=== PATIENT | male | born 1945 | race Caucasian/White ===

== ENCOUNTER 2017-04-20 19:25 | Inpatient (IN) | payer OTHER ==
[~2017-04-20] VITALS: Ht 182.9 cm; Wt 88.1 kg
--- NOTE | 2017-04-20 19:28 | PHYS DOC ---
Adult General Chief Complaint Chief Complaint: DIZZY/LIGHT HEADED [facility] HPI Patient is a 72 year old, male who presents with lightheadedness/ dizziness. He states it started 34 days ago is made worse when he turns his head or looks up. He also complains of his heart racing and his blood pressure being elevated in the 180s. States generalizes haven't felt good for last 2-3 days. He denies any chest discomfort or shortness of breath or dyspnea on exertion. 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 He initially decided to go home but he feel worse or he came in the ER. He states he does have a history of coronary artery disease and bypass in 1994 and he's had several stents since then the last one approximately 3 years ago. Review of Systems Review of Systems Constitutional: Denies fever or chills [] Eyes: Denies change in visual acuity, redness, or eye pain [] HENT: Denies nasal congestion or sore throat [] Respiratory: Denies cough or shortness of breath [] Cardiovascular: No additional information not addressed in HPI [] GI: Denies abdominal pain, nausea, vomiting, bloody stools or diarrhea [] : Denies dysuria or hematuria [] Musculoskeletal: Denies back pain or joint pain [] Integument: Denies rash or skin lesions [] Neurologic: Denies headache, focal weakness or sensory changes [] Endocrine: Denies polyuria or polydipsia [] Allergies Allergies Allergies Coded Allergies Type Severity Reaction Last Updated Verified oxycodone Allergy Severe SOA 04/20/17 Yes Physical Exam Physical Exam Constitutional: Well developed, well nourished, no acute distress, non-toxic appearance. [] HENT: Normocephalic, atraumatic, bilateral external ears normal, oropharynx moist, no oral exudates, nose normal. [] Eyes: PERRLA, EOMI, conjunctiva normal, no discharge. [] Neck: Normal range of motion, no tenderness, supple, no stridor. [] Cardiovascular:Heart rate regular rhythm, no murmur [] Lungs & Thorax: Bilateral breath sounds clear to auscultation [] Abdomen: Bowel sounds normal, soft, no tenderness, no masses, no pulsatile masses. [] Skin: Warm, dry, no erythema, no rash. [] Back: No tenderness, no CVA tenderness. [] Extremities: No tenderness, no cyanosis, no clubbing, ROM intact, no edema. [] Neurologic: Alert and oriented X 3, normal motor function, normal sensory function, no focal deficits noted. [] Psychologic: Affect normal, judgement normal, mood normal. [] Current Patient Data Vital Signs Vital Signs Date Time Temp Pulse Resp B/P (MAP) Pulse Ox O2 Delivery O2 Flow Rate FiO2 04/20/17 19:43 98.3 86 20 170/82 (111) 97 Room Air 98.3 Lab Values Laboratory Tests Test 04/20/17 19:37 White Blood Count 10.1 x10^3/uL (4.0-11.0) Red Blood Count 4.50 x10^6/uL (4.30-5.70) Hemoglobin 13.0 g/dL (13.0-17.5) Hematocrit 40.2 % (39.0-53.0) Mean Corpuscular Volume 89 fL (79-100) Mean Corpuscular Hemoglobin 29 pg (25-35) Mean Corpuscular Hemoglobin Concent 32 g/dL (31-37) Red Cell Distribution Width 14.0 % (11.5-14.5) Platelet Count 280 x10^3/uL (140-400) Neutrophils (%) (Auto) 52 % (31-73) Lymphocytes (%) (Auto) 34 % (24-48) Monocytes (%) (Auto) 8 % (0-9) Eosinophils (%) (Auto) 4 % (0-3) H Basophils (%) (Auto) 1 % (0-3) Neutrophils # (Auto) 5.2 x10^3uL (1.8-7.7) Lymphocytes # (Auto) 3.4 x10^3/uL (1.0-4.8) Monocytes # (Auto) 0.8 x10^3/uL (0.0-1.1) Eosinophils # (Auto) 0.4 x10^3/uL (0.0-0.7) Basophils # (Auto) 0.1 x10^3/uL (0.0-0.2) Sodium Level 138 mmol/L (136-145) Potassium Level 4.5 mmol/L (3.5-5.1) Chloride Level 101 mmol/L (98-107) Carbon Dioxide Level 32 mmol/L (21-32) Anion Gap 5 (6-14) L Blood Urea Nitrogen 24 mg/dL (8-26) Creatinine 1.7 mg/dL (0.7-1.3) H Estimated GFR (Cockcroft-Gault) 40.0 Glucose Level 155 mg/dL (70-99) H Calcium Level 9.2 mg/dL (8.5-10.1) Magnesium Level 2.2 mg/dL (1.8-2.4) Total Bilirubin 0.3 mg/dL (0.2-1.0) Direct Bilirubin < 0.1 mg/dL (0.0-0.2) Aspartate Amino Transferase (AST) 17 U/L (15-37) Alanine Aminotransferase (ALT) 18 U/L (16-63) Alkaline Phosphatase 73 U/L (46-116) Creatine Kinase 126 U/L (39-308) Creatine Kinase MB (Mass) 0.9 ng/mL (0.0-3.6) Creatine Kinase MB Relative Index 0.7 % (0-4) Troponin I Quantitative < 0.017 ng/mL (0.000-0.055) WQ-Ftd-J-Type Natriuretic Peptide 184 pg/mL (0-124) H Total Protein 8.4 g/dL (6.4-8.2) H Albumin 3.6 g/dL (3.4-5.0) Thyroid Stimulating Hormone (TSH) 2.419 uIU/mL (0.358-3.74) Laboratory Tests 04/20/17 19:37 Laboratory Tests 04/20/17 19:37 EKG EKG EKG shows sinus rhythm [address] elevations or T-wave inversions, normal axis, QTC 441 ms, occasional PAC noted, as interpreted by me. Radiology/Procedures Radiology/Procedures One view chest x-ray didn't show any focal consolidations, bony abnormalities, pneumothorax, as interpreted by me. Impressions: Coronary artery disease Dizziness Palpitations Diabetes Course & Med Decision Making Course & Med Decision Making Pertinent Labs and Imaging studies reviewed. (See chart for details) Labs do not show any acute abnormality's. EKG also nonacute. Monitor does have some PACs occasionally. CT of his head is pending at this time and will admit to medicine to continue watching his monitor for any arrhythmias and repeat troponins overnight. I did order a carotid Doppler's to be done. Patient's agreeable to the plan, patient being admitted by Dr. Wale Hobbs Disclaimer Anjel Disclaimer This electronic medical record was generated, in whole or in part, using a voice recognition dictation system. Departure Departure Impression: Primary Impression: Dizziness Disposition: ADMITTED INPATIENT Admitting Physician: Saskia Doan Condition: STABLE TOMI ROGERS MD Apr 20, 2017 19:28
[2017-04-20 19:47] LABS: BASO # 0.1 x10^3/uL (0.0-0.2); BASO % 1 % (0-3); EOS % 4 % (0-3); HEMATOCRIT 40.2 % (39.0-53.0); LYMPH # 3.4 x10^3/uL (1.0-4.8); LYMPH % 34 % (24-48); MEAN CORPUSCULAR HEMOGLOBIN 29 pg (25-35); MEAN CORPUSCULAR HGB CONC 32 g/dL (31-37); MEAN CORPUSCULAR VOLUME 89 fL (79-100); MONO % 8 % (0-9); NEUT % 52 % (31-73); PLATELET COUNT 280 x10^3/uL (140-400); WHITE BLOOD COUNT 10.1 x10^3/uL (4.0-11.0)
[2017-04-20 20:01] LABS: ANION GAP 5 (6-14); BLOOD UREA NITROGEN 24 mg/dL (8-26); CALCIUM 9.2 mg/dL (8.5-10.1); CARBON DIOXIDE 32 mmol/L (21-32); CHLORIDE 101 mmol/L (98-107); CREATININE 1.7 mg/dL (0.7-1.3); GLUCOSE 155 mg/dL (70-99); POTASSIUM 4.5 mmol/L (3.5-5.1); SODIUM 138 mmol/L (136-145)
[2017-04-20 20:06] LABS: ALBUMIN 3.6 g/dL (3.4-5.0); ALK PHOS 73 U/L (46-116); ALT (SGPT) 18 U/L (16-63); AST (SGOT) 17 U/L (15-37); DIRECT BILIRUBIN < 0.1 mg/dL (0.0-0.2); MAGNESIUM 2.2 mg/dL (1.8-2.4); TOTAL BILIRUBIN 0.3 mg/dL (0.2-1.0); TOTAL PROTEIN 8.4 g/dL (6.4-8.2)
[2017-04-20 20:13] LABS: CKMB MASS 0.9 ng/mL (0.0-3.6)
[2017-04-20] MEDS ORDERED: ONDANSETRON PF 4 MG/2 ML VIAL. IV PRN (21:15)
[2017-04-20 21:44] LABS: BARBITURATES NEG (NEG); BENZODIAZEPINES NEG (NEG); CANNABINOIDS NEG (NEG); COCAINE NEG (NEG); METHADONE NEG (NEG); OPIATES NEG (NEG); PHENCYCLIDINE NEG (NEG)
[2017-04-20 22:03] LABS: BILIRUBIN,URINE NEGATIVE (NEG); GLUCOSE,URINE NEGATIVE (NEG); NITRITE,URINE POSITIVE (NEG); PH,URINE 6.5; PROTEIN,URINE NEGATIVE (NEG-TRACE); UROBILINOGEN,URINE 0.2 mg/dL (0.2 mg/dL)
--- NOTE | 2017-04-20 22:12 | RAD ---
Clinical Indication: Dizziness for several days. Worse with turning of head. Technique: Study is dated April 20, 2017. CT images of the head were obtained from the skull base to the vertex without IV contrast. Comparison is from December 17, 2008. One or more of the following individualized dose reduction techniques were utilized for this examination: 1. Automated exposure control 2. Adjustment of the mA and/or kV according to patient size 3. Use of iterative reconstruction technique Findings: There is diffuse, symmetric prominence of the ventricles and subarachnoid spaces consistent with age-related parenchymal volume loss. There are areas of scattered decreased attenuation in the supratentorial white matter. While nonspecific, findings are likely secondary to small vessel ischemic disease. There is no hemorrhage, extraaxial fluid collection, mass, or midline shift. There is no large vascular distribution infarct. The posterior fossa and brainstem are unremarkable. Orbits are normal. Tiny air-fluid level is noted in the right maxillary sinus. There is no skull fracture appreciated on bone level images. Impression: No acute intracranial findings. Brain parenchymal volume loss and minimal probable small vessel ischemic disease. Electronically signed by: Donald Henderson MD (04/20/2017 10:09 PM) [facility]
[2017-04-20 22:16] LABS: BACTERIA,URINE MANY /HPF (0-FEW); WBC,URINE >40 /HPF (0-4)
--- NOTE | 2017-04-20 22:33 | RAD ---
Indication: Dizziness for 2 weeks. Hypertension Technique: Study is dated April 20, 2017. Grayscale, color-flow, and spectral waveform analysis was performed. Comparison is from December 19, 2008. Findings: Right Carotid: The 2 D images demonstrate mild to moderate plaquing but no evidence of significant narrowing. The color images are normal without turbulence or jet effect. The CCA Peak systolic velocity is 162 cm/sec, ICA peak systolic velocity is 135 cm/sec, and ICA end-diastolic velocity is 43 cm/sec. The ICA/CCA ratio is 0.8. Left Carotid: The 2 D images demonstrate mild plaquing with no evidence of significant narrowing. The color images are normal without turbulence or jet effect. The CCA Peak systolic velocity is 103 cm/sec, ICA peak systolic velocity is 124 cm/sec, and ICA end-diastolic velocity is 29 cm/sec. The ICA/CCA ratio is 1.2. Vertebral Arteries: Antegrade flow is noted within both vertebral arteries. All measurements follow NASCET methodology. Impression: Plaquing in the carotid bulbs, no evidence of a hemodynamically significant stenosis. Electronically signed by: Donald Henderson MD (04/20/2017 10:28 PM) [facility]
[2017-04-20 23:00] VITALS: BP 132/101
[2017-04-20] MEDS ORDERED: METO1TAB32 PO (23:18)
[2017-04-20] MEDS ORDERED: LISI-334 PO (23:18)
[2017-04-20] MEDS ORDERED: METF500T4 PO (23:18)
[2017-04-21 00:07] VITALS: BP 132/101
[2017-04-21] MEDS ORDERED: cloNIDine HCL 0.1 MG TABLET PO PRN (01:00)
[2017-04-21 03:00] VITALS: BP 146/52
[2017-04-21 05:00] LABS: BASO # 0.1 x10^3/uL (0.0-0.2); BASO % 1 % (0-3); EOS % 5 % (0-3); HEMATOCRIT 38.5 % (39.0-53.0); HEMOGLOBIN 12.4 g/dL (13.0-17.5); LYMPH # 3.2 x10^3/uL (1.0-4.8); LYMPH % 34 % (24-48); MEAN CORPUSCULAR HEMOGLOBIN 29 pg (25-35); MEAN CORPUSCULAR HGB CONC 32 g/dL (31-37); MEAN CORPUSCULAR VOLUME 89 fL (79-100); MONO % 10 % (0-9); NEUT % 50 % (31-73); PLATELET COUNT 246 x10^3/uL (140-400); RED BLOOD COUNT 4.33 x10^6/uL (4.30-5.70); RED CELL DISTRIBUTION WIDTH 13.9 % (11.5-14.5); WHITE BLOOD COUNT 9.4 x10^3/uL (4.0-11.0)
[2017-04-21 05:19] LABS: CALCIUM 8.9 mg/dL (8.5-10.1); CREATININE 1.6 mg/dL (0.7-1.3); GFR 42.9; POTASSIUM 4.7 mmol/L (3.5-5.1)
[2017-04-21 07:00] VITALS: BP 108/60
[2017-04-21] MEDS ORDERED: metFORMIN 500 MG TABLET PO SCH (08:00)
--- NOTE | 2017-04-21 08:47 | RAD ---
AP chest. History: Dizzy, elevated heart rate AP view was taken of the chest. Lungs are clear. There are changes from bypass surgery. Heart is normal in size. There is no effusion. Impression: 1. No acute chest disease.
[2017-04-21] MEDS: hydroCHLOROthiazide 12.5 MG CAPSULE PO SCH ×2 (09:00→12:16)
[2017-04-21 11:00] VITALS: BP 129/66
[2017-04-21] MEDS: METOPROLOL SUCC 24HR ER 50 MG TAB.ER.24H. PO SCH (12:16)
[2017-04-21] MEDS: LISINOPRIL 20 MG TABLET PO SCH ×2 (12:17→19:53)
--- NOTE | 2017-04-21 12:30 | PDOC ---
PROGRESS NOTES Chief Complaint Chief Complaint Lightheadedness/dizziness History of Present Illness History of Present Illness Pt is a 72 y/o male who presents with complaints of lightheadedness and dizziness which are made worse by turning his head from side to side or up or down. He has a hx of CAD with a CABG in 1994, and 3 stents since this, the most recent being 3 years ago. His initial cardiac workup was negative with a negative EKG, CXR and enzymes. CT head showed no acute findings. Carotid doppler showed plaques in the carotid bulbs but without any significant stenosis. Today it is noted that the patient has a positive urinalysis which we will treat with IV abx. Seen at bedside. He is resting comfortably and in no acute distress. Denies CP and SOB. No dizziness at the moment. No acute complaints at this time. Vitals Vitals Vital Signs Date Time Temp Pulse Resp B/P (MAP) Pulse Ox O2 Delivery O2 Flow Rate FiO2 04/21/17 12:17 64 129/66 04/21/17 11:00 97.3 16 96 Room Air 97.3 Physical Exam General: Alert, Oriented X3, Cooperative, No acute distress Heart: Regular rate, Normal S1, Normal S2, No murmurs Lungs: Clear Abdomen: Normal bowel sounds, Soft, No tenderness, No masses Extremities: No clubbing, No cyanosis, No edema, Normal pulses Skin: No rashes, No breakdown Labs LABS Laboratory Tests Test 04/20/17 19:37 04/20/17 21:15 04/21/17 03:15 04/21/17 07:45 White Blood Count 10.1 x10^3/uL (4.0-11.0) 9.4 x10^3/uL (4.0-11.0) Red Blood Count 4.50 x10^6/uL (4.30-5.70) 4.33 x10^6/uL (4.30-5.70) Hemoglobin 13.0 g/dL (13.0-17.5) 12.4 g/dL (13.0-17.5) Hematocrit 40.2 % (39.0-53.0) 38.5 % (39.0-53.0) Mean Corpuscular Volume 89 fL (79-100) 89 fL (79-100) Mean Corpuscular Hemoglobin 29 pg (25-35) 29 pg (25-35) Mean Corpuscular Hemoglobin Concent 32 g/dL (31-37) 32 g/dL (31-37) Red Cell Distribution Width 14.0 % (11.5-14.5) 13.9 % (11.5-14.5) Platelet Count 280 x10^3/uL (140-400) 246 x10^3/uL (140-400) Neutrophils (%) (Auto) 52 % (31-73) 50 % (31-73) Lymphocytes (%) (Auto) 34 % (24-48) 34 % (24-48) Monocytes (%) (Auto) 8 % (0-9) 10 % (0-9) Eosinophils (%) (Auto) 4 % (0-3) 5 % (0-3) Basophils (%) (Auto) 1 % (0-3) 1 % (0-3) Neutrophils # (Auto) 5.2 x10^3uL (1.8-7.7) 4.7 x10^3uL (1.8-7.7) Lymphocytes # (Auto) 3.4 x10^3/uL (1.0-4.8) 3.2 x10^3/uL (1.0-4.8) Monocytes # (Auto) 0.8 x10^3/uL (0.0-1.1) 1.0 x10^3/uL (0.0-1.1) Eosinophils # (Auto) 0.4 x10^3/uL (0.0-0.7) 0.5 x10^3/uL (0.0-0.7) Basophils # (Auto) 0.1 x10^3/uL (0.0-0.2) 0.1 x10^3/uL (0.0-0.2) Sodium Level 138 mmol/L (136-145) 139 mmol/L (136-145) Potassium Level 4.5 mmol/L (3.5-5.1) 4.7 mmol/L (3.5-5.1) Chloride Level 101 mmol/L (98-107) 104 mmol/L (98-107) Carbon Dioxide Level 32 mmol/L (21-32) 29 mmol/L (21-32) Anion Gap 5 (6-14) 6 (6-14) Blood Urea Nitrogen 24 mg/dL (8-26) 25 mg/dL (8-26) Creatinine 1.7 mg/dL (0.7-1.3) 1.6 mg/dL (0.7-1.3) Estimated GFR (Cockcroft-Gault) 40.0 42.9 Glucose Level 155 mg/dL (70-99) 88 mg/dL (70-99) Calcium Level 9.2 mg/dL (8.5-10.1) 8.9 mg/dL (8.5-10.1) Magnesium Level 2.2 mg/dL (1.8-2.4) Total Bilirubin 0.3 mg/dL (0.2-1.0) Direct Bilirubin < 0.1 mg/dL (0.0-0.2) Aspartate Amino Transf (AST/SGOT) 17 U/L (15-37) Alanine Aminotransferase (ALT/SGPT) 18 U/L (16-63) Alkaline Phosphatase 73 U/L (46-116) Creatine Kinase 126 U/L (39-308) Creatine Kinase MB (Mass) 0.9 ng/mL (0.0-3.6) Creatine Kinase MB Relative Index 0.7 % (0-4) Troponin I Quantitative < 0.017 ng/mL (0.000-0.055) < 0.017 ng/mL (0.000-0.055) QJ-Nsq-H-Type Natriuretic Peptide 184 pg/mL (0-124) Total Protein 8.4 g/dL (6.4-8.2) Albumin 3.6 g/dL (3.4-5.0) Thyroid Stimulating Hormone (TSH) 2.419 uIU/mL (0.358-3.74) Urine Collection Type Unknown Urine Color Yellow Urine Clarity Cloudy Urine pH 6.5 Urine Specific Edison 1.010 Urine Protein Negative mg/dL (NEG-TRACE) Urine Glucose (UA) Negative mg/dL (NEG) Urine Ketones (Stick) Negative mg/dL (NEG) Urine Blood Small (NEG) Urine Nitrite Positive (NEG) Urine Bilirubin Negative (NEG) Urine Urobilinogen Dipstick 0.2 mg/dL (0.2 mg/dL) Urine Leukocyte Esterase Large (NEG) Urine RBC 3-5 /HPF (0-2) Urine WBC >40 /HPF (0-4) Urine Bacteria Many /HPF (0-FEW) Urine Opiates Screen Neg (NEG) Urine Methadone Screen Neg (NEG) Urine Barbiturates Neg (NEG) Urine Phencyclidine Screen Neg (NEG) Urine Amphetamine/Methamphetamine Neg (NEG) Urine Benzodiazepines Screen Neg (NEG) Urine Cocaine Screen Neg (NEG) Urine Cannabinoids Screen Neg (NEG) Urine Ethyl Alcohol Neg (NEG) Glucose (Fingerstick) 112 mg/dL (70-99) Test 04/21/17 09:00 04/21/17 10:55 Troponin I Quantitative < 0.017 ng/mL (0.000-0.055) Glucose (Fingerstick) 119 mg/dL (70-99) Review of Systems Review of Systems General: + fatigue, no fever or chills CV: denies CP and palpitations resp: No SOB wheezing Neuo: No dizziness Assessment and Plan Assessmemt and Plan Problems Medical Problems: (1) Dizziness Status: Acute Assessment: -lightheadedness/dizziness -CAD Plan: -Continue monitoring -Recheck labs -Continue home meds - Order NS at 50 per hour - Order Levoquin -PT/OT -Consult neuro (Yenifer) -Consult Cardio (Bianka) -Consult GI (bubba) Problems: Comment Review of Relevant I have reviewed the following items jacky (where applicable) has been applied. Labs Laboratory Tests Test 04/20/17 19:37 04/20/17 21:15 04/21/17 03:15 04/21/17 07:45 White Blood Count 10.1 x10^3/uL (4.0-11.0) 9.4 x10^3/uL (4.0-11.0) Red Blood Count 4.50 x10^6/uL (4.30-5.70) 4.33 x10^6/uL (4.30-5.70) Hemoglobin 13.0 g/dL (13.0-17.5) 12.4 g/dL (13.0-17.5) Hematocrit 40.2 % (39.0-53.0) 38.5 % (39.0-53.0) Mean Corpuscular Volume 89 fL (79-100) 89 fL (79-100) Mean Corpuscular Hemoglobin 29 pg (25-35) 29 pg (25-35) Mean Corpuscular Hemoglobin Concent 32 g/dL (31-37) 32 g/dL (31-37) Red Cell Distribution Width 14.0 % (11.5-14.5) 13.9 % (11.5-14.5) Platelet Count 280 x10^3/uL (140-400) 246 x10^3/uL (140-400) Neutrophils (%) (Auto) 52 % (31-73) 50 % (31-73) Lymphocytes (%) (Auto) 34 % (24-48) 34 % (24-48) Monocytes (%) (Auto) 8 % (0-9) 10 % (0-9) Eosinophils (%) (Auto) 4 % (0-3) 5 % (0-3) Basophils (%) (Auto) 1 % (0-3) 1 % (0-3) Neutrophils # (Auto) 5.2 x10^3uL (1.8-7.7) 4.7 x10^3uL (1.8-7.7) Lymphocytes # (Auto) 3.4 x10^3/uL (1.0-4.8) 3.2 x10^3/uL (1.0-4.8) Monocytes # (Auto) 0.8 x10^3/uL (0.0-1.1) 1.0 x10^3/uL (0.0-1.1) Eosinophils # (Auto) 0.4 x10^3/uL (0.0-0.7) 0.5 x10^3/uL (0.0-0.7) Basophils # (Auto) 0.1 x10^3/uL (0.0-0.2) 0.1 x10^3/uL (0.0-0.2) Sodium Level 138 mmol/L (136-145) 139 mmol/L (136-145) Potassium Level 4.5 mmol/L (3.5-5.1) 4.7 mmol/L (3.5-5.1) Chloride Level 101 mmol/L (98-107) 104 mmol/L (98-107) Carbon Dioxide Level 32 mmol/L (21-32) 29 mmol/L (21-32) Anion Gap 5 (6-14) 6 (6-14) Blood Urea Nitrogen 24 mg/dL (8-26) 25 mg/dL (8-26) Creatinine 1.7 mg/dL (0.7-1.3) 1.6 mg/dL (0.7-1.3) Estimated GFR (Cockcroft-Gault) 40.0 42.9 Glucose Level 155 mg/dL (70-99) 88 mg/dL (70-99) Calcium Level 9.2 mg/dL (8.5-10.1) 8.9 mg/dL (8.5-10.1) Magnesium Level 2.2 mg/dL (1.8-2.4) Total Bilirubin 0.3 mg/dL (0.2-1.0) Direct Bilirubin < 0.1 mg/dL (0.0-0.2) Aspartate Amino Transf (AST/SGOT) 17 U/L (15-37) Alanine Aminotransferase (ALT/SGPT) 18 U/L (16-63) Alkaline Phosphatase 73 U/L (46-116) Creatine Kinase 126 U/L (39-308) Creatine Kinase MB (Mass) 0.9 ng/mL (0.0-3.6) Creatine Kinase MB Relative Index 0.7 % (0-4) Troponin I Quantitative < 0.017 ng/mL (0.000-0.055) < 0.017 ng/mL (0.000-0.055) AX-Jmc-C-Type Natriuretic Peptide 184 pg/mL (0-124) Total Protein 8.4 g/dL (6.4-8.2) Albumin 3.6 g/dL (3.4-5.0) Thyroid Stimulating Hormone (TSH) 2.419 uIU/mL (0.358-3.74) Urine Collection Type Unknown Urine Color Yellow Urine Clarity Cloudy Urine pH 6.5 Urine Specific Edison 1.010 Urine Protein Negative mg/dL (NEG-TRACE) Urine Glucose (UA) Negative mg/dL (NEG) Urine Ketones (Stick) Negative mg/dL (NEG) Urine Blood Small (NEG) Urine Nitrite Positive (NEG) Urine Bilirubin Negative (NEG) Urine Urobilinogen Dipstick 0.2 mg/dL (0.2 mg/dL) Urine Leukocyte Esterase Large (NEG) Urine RBC 3-5 /HPF (0-2) Urine WBC >40 /HPF (0-4) Urine Bacteria Many /HPF (0-FEW) Urine Opiates Screen Neg (NEG) Urine Methadone Screen Neg (NEG) Urine Barbiturates Neg (NEG) Urine Phencyclidine Screen Neg (NEG) Urine Amphetamine/Methamphetamine Neg (NEG) Urine Benzodiazepines Screen Neg (NEG) Urine Cocaine Screen Neg (NEG) Urine Cannabinoids Screen Neg (NEG) Urine Ethyl Alcohol Neg (NEG) Glucose (Fingerstick) 112 mg/dL (70-99) Test 04/21/17 09:00 04/21/17 10:55 Troponin I Quantitative < 0.017 ng/mL (0.000-0.055) Glucose (Fingerstick) 119 mg/dL (70-99) Laboratory Tests Test 04/20/17 19:37 04/20/17 21:15 04/21/17 03:15 04/21/17 07:45 White Blood Count 10.1 x10^3/uL (4.0-11.0) 9.4 x10^3/uL (4.0-11.0) Red Blood Count 4.50 x10^6/uL (4.30-5.70) 4.33 x10^6/uL (4.30-5.70) Hemoglobin 13.0 g/dL (13.0-17.5) 12.4 g/dL (13.0-17.5) Hematocrit 40.2 % (39.0-53.0) 38.5 % (39.0-53.0) Mean Corpuscular Volume 89 fL (79-100) 89 fL (79-100) Mean Corpuscular Hemoglobin 29 pg (25-35) 29 pg (25-35) Mean Corpuscular Hemoglobin Concent 32 g/dL (31-37) 32 g/dL (31-37) Red Cell Distribution Width 14.0 % (11.5-14.5) 13.9 % (11.5-14.5) Platelet Count 280 x10^3/uL (140-400) 246 x10^3/uL (140-400) Neutrophils (%) (Auto) 52 % (31-73) 50 % (31-73) Lymphocytes (%) (Auto) 34 % (24-48) 34 % (24-48) Monocytes (%) (Auto) 8 % (0-9) 10 % (0-9) Eosinophils (%) (Auto) 4 % (0-3) 5 % (0-3) Basophils (%) (Auto) 1 % (0-3) 1 % (0-3) Neutrophils # (Auto) 5.2 x10^3uL (1.8-7.7) 4.7 x10^3uL (1.8-7.7) Lymphocytes # (Auto) 3.4 x10^3/uL (1.0-4.8) 3.2 x10^3/uL (1.0-4.8) Monocytes # (Auto) 0.8 x10^3/uL (0.0-1.1) 1.0 x10^3/uL (0.0-1.1) Eosinophils # (Auto) 0.4 x10^3/uL (0.0-0.7) 0.5 x10^3/uL (0.0-0.7) Basophils # (Auto) 0.1 x10^3/uL (0.0-0.2) 0.1 x10^3/uL (0.0-0.2) Sodium Level 138 mmol/L (136-145) 139 mmol/L (136-145) Potassium Level 4.5 mmol/L (3.5-5.1) 4.7 mmol/L (3.5-5.1) Chloride Level 101 mmol/L (98-107) 104 mmol/L (98-107) Carbon Dioxide Level 32 mmol/L (21-32) 29 mmol/L (21-32) Anion Gap 5 (6-14) 6 (6-14) Blood Urea Nitrogen 24 mg/dL (8-26) 25 mg/dL (8-26) Creatinine 1.7 mg/dL (0.7-1.3) 1.6 mg/dL (0.7-1.3) Estimated GFR (Cockcroft-Gault) 40.0 42.9 Glucose Level 155 mg/dL (70-99) 88 mg/dL (70-99) Calcium Level 9.2 mg/dL (8.5-10.1) 8.9 mg/dL (8.5-10.1) Magnesium Level 2.2 mg/dL (1.8-2.4) Total Bilirubin 0.3 mg/dL (0.2-1.0) Direct Bilirubin < 0.1 mg/dL (0.0-0.2) Aspartate Amino Transf (AST/SGOT) 17 U/L (15-37) Alanine Aminotransferase (ALT/SGPT) 18 U/L (16-63) Alkaline Phosphatase 73 U/L (46-116) Creatine Kinase 126 U/L (39-308) Creatine Kinase MB (Mass) 0.9 ng/mL (0.0-3.6) Creatine Kinase MB Relative Index 0.7 % (0-4) Troponin I Quantitative < 0.017 ng/mL (0.000-0.055) < 0.017 ng/mL (0.000-0.055) JS-Alp-G-Type Natriuretic Peptide 184 pg/mL (0-124) Total Protein 8.4 g/dL (6.4-8.2) Albumin 3.6 g/dL (3.4-5.0) Thyroid Stimulating Hormone (TSH) 2.419 uIU/mL (0.358-3.74) Urine Collection Type Unknown Urine Color Yellow Urine Clarity Cloudy Urine pH 6.5 Urine Specific Edison 1.010 Urine Protein Negative mg/dL (NEG-TRACE) Urine Glucose (UA) Negative mg/dL (NEG) Urine Ketones (Stick) Negative mg/dL (NEG) Urine Blood Small (NEG) Urine Nitrite Positive (NEG) Urine Bilirubin Negative (NEG) Urine Urobilinogen Dipstick 0.2 mg/dL (0.2 mg/dL) Urine Leukocyte Esterase Large (NEG) Urine RBC 3-5 /HPF (0-2) Urine WBC >40 /HPF (0-4) Urine Bacteria Many /HPF (0-FEW) Urine Opiates Screen Neg (NEG) Urine Methadone Screen Neg (NEG) Urine Barbiturates Neg (NEG) Urine Phencyclidine Screen Neg (NEG) Urine Amphetamine/Methamphetamine Neg (NEG) Urine Benzodiazepines Screen Neg (NEG) Urine Cocaine Screen Neg (NEG) Urine Cannabinoids Screen Neg (NEG) Urine Ethyl Alcohol Neg (NEG) Glucose (Fingerstick) 112 mg/dL (70-99) Test 04/21/17 09:00 04/21/17 10:55 Troponin I Quantitative < 0.017 ng/mL (0.000-0.055) Glucose (Fingerstick) 119 mg/dL (70-99) Medications Current Medications Ondansetron HCl (Zofran) 4 mg PRN Q8HRS PRN IV NAUSEA/VOMITING; Start 04/20/17 at 21:15; Stop 04/21/17 at 21:14 Lisinopril (Prinivil) 20 mg DAILY PO Last administered on 04/21/17 12:17; Start 04/21/17 at 09:00 Metformin HCl (Glucophage) 500 mg BIDWMEALS PO ; Start 04/21/17 at 08:00; Status UNV Metoprolol Succinate (Toprol Xl) 50 mg DAILY PO Last administered on 04/21/17 12:16; Start 04/21/17 at 09:00 Clonidine HCl (Catapres) 0.1 mg PRN Q1HR PRN PO HYPERTENSION, SEE COMMENTS; Start 04/21/17 at 01:00 Hydrochlorothiazide (Microzide) 12.5 mg DAILY PO Last administered on 12:16; Start 04/21/17 at 09:00 Active Scripts Active Reported Metformin Hcl 500 Mg Tablet 500 Mg PO BIDWMEALS Lisinopril 20 Mg Tablet 20 Mg PO DAILY Metoprolol ER-Hctz 50-12.5 mg (Metoprolol Succinate/Hctz) 1 Each Tab.er.24h 1 Each PO DAILY Vitals/I & O Vital Sign - Last 24 Hours 04/20/17 04/20/17 04/20/17 04/20/17 19:43 21:49 23:00 23:36 Temp 98.3 98.3 98.3 98.3 Pulse 86 73 78 Resp 20 16 21 B/P (MAP) 170/82 (111) 130/55 (80) 132/101 (111) Pulse Ox 97 92 93 O2 Delivery Room Air Room Air Room Air Room Air 04/21/17 04/21/17 04/21/17 04/21/17 00:07 03:00 07:00 08:00 Temp 98.3 97.8 98.1 98.3 97.8 98.1 Pulse 78 59 64 Resp 21 20 16 B/P (MAP) 132/101 (111) 146/52 (83) 108/60 (76) Pulse Ox 93 92 94 O2 Delivery Room Air Room Air Room Air 04/21/17 04/21/17 04/21/17 11:00 12:16 12:17 Temp 97.3 97.3 Pulse 64 64 64 Resp 16 B/P (MAP) 129/66 (87) 129/66 129/66 Pulse Ox 96 O2 Delivery Room Air ALEXIS ROMO III DO Apr 21, 2017 12:30
--- NOTE | 2017-04-21 12:49 | EKG ---
[facility] [address] [place] [address] Test Date: 2017-04-20 Test Time: 19:35:17 Pat Name: VINITA THOMPSON Department: Room: [facility] Gender: M Voip Engineer: : [id number] Requested By: TOMI ROGERS Order Number: [id number] Reading MD: Andrew James Measurements Intervals [place] Rate: 79 P: 31 MS: 156 QRS: 43 QRSD: 82 T: 64 QT: 384 QTc: 441 Interpretive Statements SINUS RHYTHM PAC'S Electronically Signed On 04-22-2017 10:46:54 CDT by Andrew James
[2017-04-21] MEDS: IV NORMAL SALINE 1000ML BAG 1,000 ML IV SCH (14:22)
--- NOTE | 2017-04-21 14:51 | HP ---
ADMIT DATE: 04/21/2017 CHIEF COMPLAINT: Lightheadedness. HISTORY OF PRESENT ILLNESS: The patient is a pleasant 72-year-old male who appears much than his stated age. He is basically dizzy and lightheadedness. He has some palpitations. This has been occurring for up to 34 days. He feels his heart racing periodically. He does have a known history of bypass surgery and stents. I have discussed the case with ER physician. We are going to admit the patient and consult Cardiology. PAST MEDICAL HISTORY: Bypass surgery, cardiac stents. ALLERGIES: OXYCODONE. FAMILY HISTORY: Coronary artery disease. SOCIAL HISTORY: Does not drink, smoke or take drugs. MEDICATIONS: Reviewed. REVIEW OF SYSTEMS: REVIEW OF SYSTEMS: GENERAL: No history of weight change, weakness or fevers. SKIN: No bruising, hair changes or rashes. EYES: No blurred, double or loss of vision. NOSE AND THROAT: No history of nosebleeds, hoarseness or sore throat. HEART: He complains of intermittent palpitations. No history of chest pain or shortness of breath on exertion. LUNGS: Denies cough, hemoptysis, wheezing or shortness of breath. GASTROINTESTINAL: Denies changes in appetite, nausea, vomiting, diarrhea or constipation. GENITOURINARY: No history of frequency, urgency, hesitancy or nocturia. NEUROLOGIC: Denies history of numbness, tingling, tremor or weakness. PSYCHIATRIC: No history of panic, anxiety or depression. ENDOCRINE: No history of heat or cold intolerance, polyuria or polydipsia. EXTREMITIES: Denies muscle weakness, joint pain, pain on walking or stiffness. PHYSICAL EXAMINATION: VITAL SIGNS: Temperature afebrile, pulse 92, respirations 16, blood pressure 144/91, O2 sat 96%. GENERAL: He is alert, cooperative, very talkative, pleasant. HEART: Normal S1, S2. LUNGS: Clear. ABDOMEN: Soft. EXTREMITIES: No edema. SKIN: No rashes. PSYCHIATRIC: Stable. VASCULAR: Good capillary refill. ENDOCRINE: No thyromegaly. LYMPHATICS: No cervical nodes. HEMATOPOIETIC: No bruising. LABORATORY DATA: Hematology normal. Electrolytes normal. Troponin is 0. ASSESSMENT AND PLAN: Palpitations and lightheadedness with known coronary artery disease. The patient is being admitted. We will check serial enzymes, serial EKGs, cardiac monitoring. Consult Cardiology. Continue home medicines. ALEXIS ROMO DO DR: ESME/marcia JOB#: [id number] / [id number]
--- NOTE | 2017-04-21 17:45 | PDOC2 ---
CONSULT Date of Consult Date of Consult DATE: 04/21/17 TIME: 17:43 Reason for Consult Reason for Consult: Dizziness, lightheaded. History of Present Illness Reason for Visit: This patient is 72-year-old man with complaints of dizziness, lightheadedness. Patient also has history of palpitations with status post bypass surgery and stents. Patient reports his blood pressure has some fluctuations running low blood pressures. Patient also complains of dizziness which is more when he is trying to change position in the bed or trying to get out of the bed too quickly sometimes it if is at night looking up or with change in head position he will have episode of dizziness lasting few minutes. Positional dizziness. Palpitation check for syncope workup Cardiac recommendations Current Problem List Problem List Problems Medical Problems: (1) Dizziness Status: Acute Current Medications Current Medications Current Medications Ondansetron HCl (Zofran) 4 mg PRN Q8HRS PRN IV NAUSEA/VOMITING; Start 04/20/17 at 21:15; Stop 04/21/17 at 21:14 Lisinopril (Prinivil) 20 mg DAILY PO Last administered on 04/21/17 12:17; Start 04/21/17 at 09:00 Metformin HCl (Glucophage) 500 mg BIDWMEALS PO ; Start 04/21/17 at 08:00; Status UNV Metoprolol Succinate (Toprol Xl) 50 mg DAILY PO Last administered on 04/21/17 12:16; Start 04/21/17 at 09:00 Clonidine HCl (Catapres) 0.1 mg PRN Q1HR PRN PO HYPERTENSION, SEE COMMENTS; Start 04/21/17 at 01:00 Hydrochlorothiazide (Microzide) 12.5 mg DAILY PO ; Start 04/21/17 at 09:00 Sodium Chloride 1,000 ml @ 50 mls/hr Q20H IV Last administered on 04/21/17 14 :22; Start 04/21/17 at 13:00 Levofloxacin/ Dextrose 100 ml @ 100 mls/hr Q24H IV Last administered on 14:22; Start 04/21/17 at 13:00 Meclizine HCl (Antivert) 25 mg PRN Q8HRS PRN PO DIZZINESS; Start 04/21/17 at 16 :30 Active Scripts Active Reported Metformin Hcl 500 Mg Tablet 500 Mg PO BIDWMEALS Lisinopril 20 Mg Tablet 20 Mg PO DAILY Metoprolol ER-Hctz 50-12.5 mg (Metoprolol Succinate/Hctz) 1 Each Tab.er.24h 1 Each PO DAILY Allergies Allergies: Coded Allergies: oxycodone (Verified Allergy, Severe, SOA, 04/20/17) Physical Exam Physical Exam REVIEW OF SYSTEMS: Otherwise, not [id number] review of systems. PHYSICAL EXAMINATION: General appearance is in acute distress. HEENT: Normocephalic and nontraumatic. Eyes, nose, ears, and throat are unremarkable. Neck is supple. No lymphadenopathy. No crepitus. Cardiovascular: S1, S2, regular rate and rhythm. Pulmonary: Clear to auscultation bilaterally. Abdomen: Bowel sounds are positive. Abdomen is soft, nontender, and nondistended. NEUROLOGICAL EXAMINATION: Alert Oriented to time, place and person. PERRL. EOMI. CN: no focal findings. Muscle tone: within normal. Muscle strength: 5 DTR: 2 Plantar reflex: Flexor response bilaterally Gait: not examined in bed. Sensory exam: no abnormal findings. No obvious cerebellar signs elicited. Vitals VITALS Vital Signs Date Time Temp Pulse Resp B/P (MAP) Pulse Ox O2 Delivery O2 Flow Rate FiO2 04/21/17 12:17 64 129/66 04/21/17 11:00 97.3 16 96 Room Air 97.3 Labs Labs Laboratory Tests Test 04/20/17 19:37 04/20/17 21:15 04/21/17 03:15 04/21/17 07:45 White Blood Count 10.1 x10^3/uL (4.0-11.0) 9.4 x10^3/uL (4.0-11.0) Red Blood Count 4.50 x10^6/uL (4.30-5.70) 4.33 x10^6/uL (4.30-5.70) Hemoglobin 13.0 g/dL (13.0-17.5) 12.4 g/dL (13.0-17.5) Hematocrit 40.2 % (39.0-53.0) 38.5 % (39.0-53.0) Mean Corpuscular Volume 89 fL (79-100) 89 fL (79-100) Mean Corpuscular Hemoglobin 29 pg (25-35) 29 pg (25-35) Mean Corpuscular Hemoglobin Concent 32 g/dL (31-37) 32 g/dL (31-37) Red Cell Distribution Width 14.0 % (11.5-14.5) 13.9 % (11.5-14.5) Platelet Count 280 x10^3/uL (140-400) 246 x10^3/uL (140-400) Neutrophils (%) (Auto) 52 % (31-73) 50 % (31-73) Lymphocytes (%) (Auto) 34 % (24-48) 34 % (24-48) Monocytes (%) (Auto) 8 % (0-9) 10 % (0-9) Eosinophils (%) (Auto) 4 % (0-3) 5 % (0-3) Basophils (%) (Auto) 1 % (0-3) 1 % (0-3) Neutrophils # (Auto) 5.2 x10^3uL (1.8-7.7) 4.7 x10^3uL (1.8-7.7) Lymphocytes # (Auto) 3.4 x10^3/uL (1.0-4.8) 3.2 x10^3/uL (1.0-4.8) Monocytes # (Auto) 0.8 x10^3/uL (0.0-1.1) 1.0 x10^3/uL (0.0-1.1) Eosinophils # (Auto) 0.4 x10^3/uL (0.0-0.7) 0.5 x10^3/uL (0.0-0.7) Basophils # (Auto) 0.1 x10^3/uL (0.0-0.2) 0.1 x10^3/uL (0.0-0.2) Sodium Level 138 mmol/L (136-145) 139 mmol/L (136-145) Potassium Level 4.5 mmol/L (3.5-5.1) 4.7 mmol/L (3.5-5.1) Chloride Level 101 mmol/L (98-107) 104 mmol/L (98-107) Carbon Dioxide Level 32 mmol/L (21-32) 29 mmol/L (21-32) Anion Gap 5 (6-14) 6 (6-14) Blood Urea Nitrogen 24 mg/dL (8-26) 25 mg/dL (8-26) Creatinine 1.7 mg/dL (0.7-1.3) 1.6 mg/dL (0.7-1.3) Estimated GFR (Cockcroft-Gault) 40.0 42.9 Glucose Level 155 mg/dL (70-99) 88 mg/dL (70-99) Calcium Level 9.2 mg/dL (8.5-10.1) 8.9 mg/dL (8.5-10.1) Magnesium Level 2.2 mg/dL (1.8-2.4) Total Bilirubin 0.3 mg/dL (0.2-1.0) Direct Bilirubin < 0.1 mg/dL (0.0-0.2) Aspartate Amino Transf (AST/SGOT) 17 U/L (15-37) Alanine Aminotransferase (ALT/SGPT) 18 U/L (16-63) Alkaline Phosphatase 73 U/L (46-116) Creatine Kinase 126 U/L (39-308) Creatine Kinase MB (Mass) 0.9 ng/mL (0.0-3.6) Creatine Kinase MB Relative Index 0.7 % (0-4) Troponin I Quantitative < 0.017 ng/mL (0.000-0.055) < 0.017 ng/mL (0.000-0.055) LA-Niq-T-Type Natriuretic Peptide 184 pg/mL (0-124) Total Protein 8.4 g/dL (6.4-8.2) Albumin 3.6 g/dL (3.4-5.0) Thyroid Stimulating Hormone (TSH) 2.419 uIU/mL (0.358-3.74) Urine Collection Type Unknown Urine Color Yellow Urine Clarity Cloudy Urine pH 6.5 Urine Specific [place] 1.010 Urine Protein Negative mg/dL (NEG-TRACE) Urine Glucose (UA) Negative mg/dL (NEG) Urine Ketones (Stick) Negative mg/dL (NEG) Urine Blood Small (NEG) Urine Nitrite Positive (NEG) Urine Bilirubin Negative (NEG) Urine Urobilinogen Dipstick 0.2 mg/dL (0.2 mg/dL) Urine Leukocyte Esterase Large (NEG) Urine RBC 3-5 /HPF (0-2) Urine WBC >40 /HPF (0-4) Urine Bacteria Many /HPF (0-FEW) Urine Opiates Screen Neg (NEG) Urine Methadone Screen Neg (NEG) Urine Barbiturates Neg (NEG) Urine Phencyclidine Screen Neg (NEG) Urine Amphetamine/Methamphetamine Neg (NEG) Urine Benzodiazepines Screen Neg (NEG) Urine Cocaine Screen Neg (NEG) Urine Cannabinoids Screen Neg (NEG) Urine Ethyl Alcohol Neg (NEG) Glucose (Fingerstick) 112 mg/dL (70-99) Test 04/21/17 09:00 04/21/17 10:55 04/21/17 16:22 Troponin I Quantitative < 0.017 ng/mL (0.000-0.055) Glucose (Fingerstick) 119 mg/dL (70-99) 107 mg/dL (70-99) Laboratory Tests Test 04/20/17 19:37 04/20/17 21:15 04/21/17 03:15 04/21/17 07:45 White Blood Count 10.1 x10^3/uL (4.0-11.0) 9.4 x10^3/uL (4.0-11.0) Red Blood Count 4.50 x10^6/uL (4.30-5.70) 4.33 x10^6/uL (4.30-5.70) Hemoglobin 13.0 g/dL (13.0-17.5) 12.4 g/dL (13.0-17.5) Hematocrit 40.2 % (39.0-53.0) 38.5 % (39.0-53.0) Mean Corpuscular Volume 89 fL (79-100) 89 fL (79-100) Mean Corpuscular Hemoglobin 29 pg (25-35) 29 pg (25-35) Mean Corpuscular Hemoglobin Concent 32 g/dL (31-37) 32 g/dL (31-37) Red Cell Distribution Width 14.0 % (11.5-14.5) 13.9 % (11.5-14.5) Platelet Count 280 x10^3/uL (140-400) 246 x10^3/uL (140-400) Neutrophils (%) (Auto) 52 % (31-73) 50 % (31-73) Lymphocytes (%) (Auto) 34 % (24-48) 34 % (24-48) Monocytes (%) (Auto) 8 % (0-9) 10 % (0-9) Eosinophils (%) (Auto) 4 % (0-3) 5 % (0-3) Basophils (%) (Auto) 1 % (0-3) 1 % (0-3) Neutrophils # (Auto) 5.2 x10^3uL (1.8-7.7) 4.7 x10^3uL (1.8-7.7) Lymphocytes # (Auto) 3.4 x10^3/uL (1.0-4.8) 3.2 x10^3/uL (1.0-4.8) Monocytes # (Auto) 0.8 x10^3/uL (0.0-1.1) 1.0 x10^3/uL (0.0-1.1) Eosinophils # (Auto) 0.4 x10^3/uL (0.0-0.7) 0.5 x10^3/uL (0.0-0.7) Basophils # (Auto) 0.1 x10^3/uL (0.0-0.2) 0.1 x10^3/uL (0.0-0.2) Sodium Level 138 mmol/L (136-145) 139 mmol/L (136-145) Potassium Level 4.5 mmol/L (3.5-5.1) 4.7 mmol/L (3.5-5.1) Chloride Level 101 mmol/L (98-107) 104 mmol/L (98-107) Carbon Dioxide Level 32 mmol/L (21-32) 29 mmol/L (21-32) Anion Gap 5 (6-14) 6 (6-14) Blood Urea Nitrogen 24 mg/dL (8-26) 25 mg/dL (8-26) Creatinine 1.7 mg/dL (0.7-1.3) 1.6 mg/dL (0.7-1.3) Estimated GFR (Cockcroft-Gault) 40.0 42.9 Glucose Level 155 mg/dL (70-99) 88 mg/dL (70-99) Calcium Level 9.2 mg/dL (8.5-10.1) 8.9 mg/dL (8.5-10.1) Magnesium Level 2.2 mg/dL (1.8-2.4) Total Bilirubin 0.3 mg/dL (0.2-1.0) Direct Bilirubin < 0.1 mg/dL (0.0-0.2) Aspartate Amino Transf (AST/SGOT) 17 U/L (15-37) Alanine Aminotransferase (ALT/SGPT) 18 U/L (16-63) Alkaline Phosphatase 73 U/L (46-116) Creatine Kinase 126 U/L (39-308) Creatine Kinase MB (Mass) 0.9 ng/mL (0.0-3.6) Creatine Kinase MB Relative Index 0.7 % (0-4) Troponin I Quantitative < 0.017 ng/mL (0.000-0.055) < 0.017 ng/mL (0.000-0.055) WV-Lmn-V-Type Natriuretic Peptide 184 pg/mL (0-124) Total Protein 8.4 g/dL (6.4-8.2) Albumin 3.6 g/dL (3.4-5.0) Thyroid Stimulating Hormone (TSH) 2.419 uIU/mL (0.358-3.74) Urine Collection Type Unknown Urine Color Yellow Urine Clarity Cloudy Urine pH 6.5 Urine Specific [place] 1.010 Urine Protein Negative mg/dL (NEG-TRACE) Urine Glucose (UA) Negative mg/dL (NEG) Urine Ketones (Stick) Negative mg/dL (NEG) Urine Blood Small (NEG) Urine Nitrite Positive (NEG) Urine Bilirubin Negative (NEG) Urine Urobilinogen Dipstick 0.2 mg/dL (0.2 mg/dL) Urine Leukocyte Esterase Large (NEG) Urine RBC 3-5 /HPF (0-2) Urine WBC >40 /HPF (0-4) Urine Bacteria Many /HPF (0-FEW) Urine Opiates Screen Neg (NEG) Urine Methadone Screen Neg (NEG) Urine Barbiturates Neg (NEG) Urine Phencyclidine Screen Neg (NEG) Urine Amphetamine/Methamphetamine Neg (NEG) Urine Benzodiazepines Screen Neg (NEG) Urine Cocaine Screen Neg (NEG) Urine Cannabinoids Screen Neg (NEG) Urine Ethyl Alcohol Neg (NEG) Glucose (Fingerstick) 112 mg/dL (70-99) Test 04/21/17 09:00 04/21/17 10:55 04/21/17 16:22 Troponin I Quantitative < 0.017 ng/mL (0.000-0.055) Glucose (Fingerstick) 119 mg/dL (70-99) 107 mg/dL (70-99) Assessment/Plan Assessment/Plan This patient is 72-year-old man with complaints of dizziness, lightheadedness. Patient also has history of palpitations with status post bypass surgery and stents. Patient reports his blood pressure has some fluctuations running low blood pressures. Patient also complains of dizziness which is more when he is trying to change position in the bed or trying to get out of the bed too quickly sometimes it if is at night looking up or with change in head position he will have episode of dizziness lasting few minutes. Positional dizziness. Palpitation check for syncope workup Cardiac recommendations check carotid Doppler Check MRI brain to rule out any acute process May benefit from vestibular rehabilitation. We will use meclizine, low-dose Valium as needed Continue medical management. ANJANA CORNELL MD Apr 21, 2017 17:45
[2017-04-21] MEDS: MECLIZINE HCL 12.5 MG TABLET. PO PRN (18:18)
[2017-04-21 19:00] VITALS: BP 121/65
[2017-04-21] MEDS ORDERED: LISINOPRIL 20 MG TABLET PO SCH (21:00)
[2017-04-21 23:00] VITALS: BP 126/75
[2017-04-22 03:13] VITALS: BP 140/67
[2017-04-22 06:30] LABS: BASO # 0.1 x10^3/uL (0.0-0.2); BASO % 1 % (0-3); EOS % 5 % (0-3); LYMPH # 2.9 x10^3/uL (1.0-4.8); LYMPH % 31 % (24-48); MEAN CORPUSCULAR HEMOGLOBIN 29 pg (25-35); MEAN CORPUSCULAR HGB CONC 33 g/dL (31-37); MEAN CORPUSCULAR VOLUME 88 fL (79-100); MONO % 9 % (0-9); NEUT % 54 % (31-73); PLATELET COUNT 253 x10^3/uL (140-400); RED BLOOD COUNT 4.44 x10^6/uL (4.30-5.70); WHITE BLOOD COUNT 9.2 x10^3/uL (4.0-11.0)
[2017-04-22 07:00] VITALS: BP 127/74
[2017-04-22] MEDS: hydroCHLOROthiazide 12.5 MG CAPSULE PO SCH (08:49)
[2017-04-22] MEDS: METOPROLOL SUCC 24HR ER 50 MG TAB.ER.24H. PO SCH (08:53)
[2017-04-22] MEDS: IV NORMAL SALINE 1000ML BAG 1,000 ML IV SCH (08:57)
[2017-04-22] MEDS: MECLIZINE HCL 12.5 MG TABLET. PO PRN (08:58)
[2017-04-22 11:00] VITALS: BP 125/66
--- NOTE | 2017-04-22 12:12 | CONS ---
DATE OF CONSULTATION: 04/22/2017 DATE OF SERVICE: 04/22/2017 REASON FOR CONSULTATION: Palpitations. HISTORY OF PRESENT ILLNESS: The patient is a pleasant 72-year-old male who has a past medical history of coronary artery disease, status post bypass remotely who routinely follows with Dr. West in the [facility], presented to the hospital in the setting of dizziness and lightheadedness. He was admitted to the hospital for presumed palpitations and rule out of cardiac issues. The patient reports classic symptoms of vestibular dysfunction. He also has classic symptoms of mild vasovagal symptoms in the setting of prior history of diabetes. He denies any chest pain, orthopnea, PND or palpitations. PAST MEDICAL HISTORY: As noted above. SOCIAL HISTORY: The patient denies any alcohol, tobacco or illicit drug use. ALLERGIES: No known drug allergies. FAMILY HISTORY: Noncontributory. REVIEW OF SYSTEMS: Negative for 10 out of 14 systems reviewed, unless otherwise mentioned above in HPI. PHYSICAL EXAMINATION: VITAL SIGNS: Stable, within normal. HEART: Normal. LUNGS: Normal. ABDOMEN: Normal. Negative for any edema. MUSCULOSKELETAL: No trauma. NEUROLOGIC: No focal deficits. DIAGNOSTIC DATA: EKG is notable for sinus rhythm with PACs. LABORATORY DATA: Unremarkable. ASSESSMENT: 1. Vestibular disease with lightheadedness, dizziness secondary to otologic issues and also mild component to vasovagal symptoms. 2. PACs known and chronic. 3. Coronary artery disease status post bypass without any angina at this time. RECOMMENDATIONS: 1. Supportive care from a cardiovascular standpoint. He does not have any significant indications for pacemaker implantation. His symptoms are purely related to vestibular disorder, likely related to the recent upper respiratory tract infection. Otherwise, supportive care and please call with any questions. Thank you for this consultation. ARIANNA GANT MD DR: LEAH/marcia JOB#: [id number] / [id number] BUDDY
--- NOTE | 2017-04-22 13:00 | PDOC2 ---
CONSULT Date of Consult Date of Consult DATE: 04/22/17 TIME: 12:58 Reason for Consult Reason for Consult: RLQ abd pain/dysuria Current Problem List Problem List Problems Medical Problems: (1) Dizziness Status: Acute Current Medications Current Medications Current Medications Ondansetron HCl (Zofran) 4 mg PRN Q8HRS PRN IV NAUSEA/VOMITING; Start 04/20/17 at 21:15; Stop 04/21/17 at 21:14; Status DC Lisinopril (Prinivil) 20 mg DAILY PO ; Start 04/21/17 at 09:00; Stop 04/21/17 at 19:38; Status DC Metformin HCl (Glucophage) 500 mg BIDWMEALS PO ; Start 04/21/17 at 08:00; Status UNV Metoprolol Succinate (Toprol Xl) 50 mg DAILY PO Last administered on 04/22/17 08:53; Start 04/21/17 at 09:00 Clonidine HCl (Catapres) 0.1 mg PRN Q1HR PRN PO HYPERTENSION, SEE COMMENTS; Start 04/21/17 at 01:00 Hydrochlorothiazide (Microzide) 12.5 mg DAILY PO ; Start 04/21/17 at 09:00 Sodium Chloride 1,000 ml @ 50 mls/hr Q20H IV Last administered on 04/22/17 08 :57; Start 04/21/17 at 13:00 Levofloxacin/ Dextrose 100 ml @ 100 mls/hr Q24H IV Last administered on 11:29; Start 04/21/17 at 13:00 Meclizine HCl (Antivert) 25 mg PRN Q8HRS PRN PO DIZZINESS Last administered on 04/22/17 08:58; Start 04/21/17 at 16:30 Lisinopril (Prinivil) 20 mg QHS PO Last administered on 04/21/17 20:02; Start 04/21/17 at 21:00 Levofloxacin (Levaquin) 500 mg 1X ONCE PO ; Start 04/22/17 at 12:45; Stop 04/22 at 12:46; Status UNV Active Scripts Active Reported Metformin Hcl 500 Mg Tablet 500 Mg PO BIDWMEALS Lisinopril 20 Mg Tablet 20 Mg PO DAILY Metoprolol ER-Hctz 50-12.5 mg (Metoprolol Succinate/Hctz) 1 Each Tab.er.24h 1 Each PO DAILY Allergies Allergies: Coded Allergies: oxycodone (Verified Allergy, Severe, SOA, 04/20/17) Vitals VITALS Vital Signs Date Time Temp Pulse Resp B/P (MAP) Pulse Ox O2 Delivery O2 Flow Rate FiO2 04/22/17 08:53 84 127/74 04/22/17 07:00 95.9 18 95 Room Air 95.9 Labs Labs Laboratory Tests Test 04/20/17 19:37 04/20/17 21:15 04/21/17 03:15 04/21/17 07:45 White Blood Count 10.1 x10^3/uL (4.0-11.0) 9.4 x10^3/uL (4.0-11.0) Red Blood Count 4.50 x10^6/uL (4.30-5.70) 4.33 x10^6/uL (4.30-5.70) Hemoglobin 13.0 g/dL (13.0-17.5) 12.4 g/dL (13.0-17.5) Hematocrit 40.2 % (39.0-53.0) 38.5 % (39.0-53.0) Mean Corpuscular Volume 89 fL (79-100) 89 fL (79-100) Mean Corpuscular Hemoglobin 29 pg (25-35) 29 pg (25-35) Mean Corpuscular Hemoglobin Concent 32 g/dL (31-37) 32 g/dL (31-37) Red Cell Distribution Width 14.0 % (11.5-14.5) 13.9 % (11.5-14.5) Platelet Count 280 x10^3/uL (140-400) 246 x10^3/uL (140-400) Neutrophils (%) (Auto) 52 % (31-73) 50 % (31-73) Lymphocytes (%) (Auto) 34 % (24-48) 34 % (24-48) Monocytes (%) (Auto) 8 % (0-9) 10 % (0-9) Eosinophils (%) (Auto) 4 % (0-3) 5 % (0-3) Basophils (%) (Auto) 1 % (0-3) 1 % (0-3) Neutrophils # (Auto) 5.2 x10^3uL (1.8-7.7) 4.7 x10^3uL (1.8-7.7) Lymphocytes # (Auto) 3.4 x10^3/uL (1.0-4.8) 3.2 x10^3/uL (1.0-4.8) Monocytes # (Auto) 0.8 x10^3/uL (0.0-1.1) 1.0 x10^3/uL (0.0-1.1) Eosinophils # (Auto) 0.4 x10^3/uL (0.0-0.7) 0.5 x10^3/uL (0.0-0.7) Basophils # (Auto) 0.1 x10^3/uL (0.0-0.2) 0.1 x10^3/uL (0.0-0.2) Sodium Level 138 mmol/L (136-145) 139 mmol/L (136-145) Potassium Level 4.5 mmol/L (3.5-5.1) 4.7 mmol/L (3.5-5.1) Chloride Level 101 mmol/L (98-107) 104 mmol/L (98-107) Carbon Dioxide Level 32 mmol/L (21-32) 29 mmol/L (21-32) Anion Gap 5 (6-14) 6 (6-14) Blood Urea Nitrogen 24 mg/dL (8-26) 25 mg/dL (8-26) Creatinine 1.7 mg/dL (0.7-1.3) 1.6 mg/dL (0.7-1.3) Estimated GFR (Cockcroft-Gault) 40.0 42.9 Glucose Level 155 mg/dL (70-99) 88 mg/dL (70-99) Calcium Level 9.2 mg/dL (8.5-10.1) 8.9 mg/dL (8.5-10.1) Magnesium Level 2.2 mg/dL (1.8-2.4) Total Bilirubin 0.3 mg/dL (0.2-1.0) Direct Bilirubin < 0.1 mg/dL (0.0-0.2) Aspartate Amino Transf (AST/SGOT) 17 U/L (15-37) Alanine Aminotransferase (ALT/SGPT) 18 U/L (16-63) Alkaline Phosphatase 73 U/L (46-116) Creatine Kinase 126 U/L (39-308) Creatine Kinase MB (Mass) 0.9 ng/mL (0.0-3.6) Creatine Kinase MB Relative Index 0.7 % (0-4) Troponin I Quantitative < 0.017 ng/mL (0.000-0.055) < 0.017 ng/mL (0.000-0.055) XR-Rbe-Z-Type Natriuretic Peptide 184 pg/mL (0-124) Total Protein 8.4 g/dL (6.4-8.2) Albumin 3.6 g/dL (3.4-5.0) Thyroid Stimulating Hormone (TSH) 2.419 uIU/mL (0.358-3.74) Urine Collection Type Unknown Urine Color Yellow Urine Clarity Cloudy Urine pH 6.5 Urine Specific [place] 1.010 Urine Protein Negative mg/dL (NEG-TRACE) Urine Glucose (UA) Negative mg/dL (NEG) Urine Ketones (Stick) Negative mg/dL (NEG) Urine Blood Small (NEG) Urine Nitrite Positive (NEG) Urine Bilirubin Negative (NEG) Urine Urobilinogen Dipstick 0.2 mg/dL (0.2 mg/dL) Urine Leukocyte Esterase Large (NEG) Urine RBC 3-5 /HPF (0-2) Urine WBC >40 /HPF (0-4) Urine Bacteria Many /HPF (0-FEW) Urine Opiates Screen Neg (NEG) Urine Methadone Screen Neg (NEG) Urine Barbiturates Neg (NEG) Urine Phencyclidine Screen Neg (NEG) Urine Amphetamine/Methamphetamine Neg (NEG) Urine Benzodiazepines Screen Neg (NEG) Urine Cocaine Screen Neg (NEG) Urine Cannabinoids Screen Neg (NEG) Urine Ethyl Alcohol Neg (NEG) Glucose (Fingerstick) 112 mg/dL (70-99) Test 04/21/17 09:00 04/21/17 10:55 04/21/17 16:22 04/21/17 20:50 Troponin I Quantitative < 0.017 ng/mL (0.000-0.055) Glucose (Fingerstick) 119 mg/dL (70-99) 107 mg/dL (70-99) 121 mg/dL (70-99) Test 04/22/17 05:55 04/22/17 07:52 04/22/17 11:29 White Blood Count 9.2 x10^3/uL (4.0-11.0) Red Blood Count 4.44 x10^6/uL (4.30-5.70) Hemoglobin 13.0 g/dL (13.0-17.5) Hematocrit 39.0 % (39.0-53.0) Mean Corpuscular Volume 88 fL (79-100) Mean Corpuscular Hemoglobin 29 pg (25-35) Mean Corpuscular Hemoglobin Concent 33 g/dL (31-37) Red Cell Distribution Width 14.0 % (11.5-14.5) Platelet Count 253 x10^3/uL (140-400) Neutrophils (%) (Auto) 54 % (31-73) Lymphocytes (%) (Auto) 31 % (24-48) Monocytes (%) (Auto) 9 % (0-9) Eosinophils (%) (Auto) 5 % (0-3) Basophils (%) (Auto) 1 % (0-3) Neutrophils # (Auto) 5.0 x10^3uL (1.8-7.7) Lymphocytes # (Auto) 2.9 x10^3/uL (1.0-4.8) Monocytes # (Auto) 0.8 x10^3/uL (0.0-1.1) Eosinophils # (Auto) 0.5 x10^3/uL (0.0-0.7) Basophils # (Auto) 0.1 x10^3/uL (0.0-0.2) Glucose (Fingerstick) 110 mg/dL (70-99) 124 mg/dL (70-99) Laboratory Tests Test 04/21/17 16:22 04/21/17 20:50 04/22/17 05:55 04/22/17 07:52 Glucose (Fingerstick) 107 mg/dL (70-99) 121 mg/dL (70-99) 110 mg/dL (70-99) White Blood Count 9.2 x10^3/uL (4.0-11.0) Red Blood Count 4.44 x10^6/uL (4.30-5.70) Hemoglobin 13.0 g/dL (13.0-17.5) Hematocrit 39.0 % (39.0-53.0) Mean Corpuscular Volume 88 fL (79-100) Mean Corpuscular Hemoglobin 29 pg (25-35) Mean Corpuscular Hemoglobin Concent 33 g/dL (31-37) Red Cell Distribution Width 14.0 % (11.5-14.5) Platelet Count 253 x10^3/uL (140-400) Neutrophils (%) (Auto) 54 % (31-73) Lymphocytes (%) (Auto) 31 % (24-48) Monocytes (%) (Auto) 9 % (0-9) Eosinophils (%) (Auto) 5 % (0-3) Basophils (%) (Auto) 1 % (0-3) Neutrophils # (Auto) 5.0 x10^3uL (1.8-7.7) Lymphocytes # (Auto) 2.9 x10^3/uL (1.0-4.8) Monocytes # (Auto) 0.8 x10^3/uL (0.0-1.1) Eosinophils # (Auto) 0.5 x10^3/uL (0.0-0.7) Basophils # (Auto) 0.1 x10^3/uL (0.0-0.2) Test 04/22/17 11:29 Glucose (Fingerstick) 124 mg/dL (70-99) Assessment/Plan Assessment/Plan RLQ abd pain- with UTI, await C&S to assess for poly-microbial infection, if present, then urology evaluation for fistual would be pursued, otherwise f/u with pmd, stable for Gi release JESSICA MARQUEZ MD Apr 22, 2017 13:00
--- NOTE | 2017-04-22 13:15 | PDOC ---
PROGRESS NOTES Chief Complaint Chief Complaint Lightheadedness/dizziness Palpitations Suprapubic abd pain dysuria CAD DM History of Present Illness History of Present Illness Pt is a 72 y/o male who presents with complaints of lightheadedness and dizziness which are made worse by turning his head from side to side or up or down. He has a hx of CAD with a CABG in 1994, and 3 stents since this, the most recent being 3 years ago. His initial cardiac workup was negative with a negative EKG, CXR and enzymes. CT head showed no acute findings. Carotid doppler showed plaques in the carotid bulbs but without any significant stenosis. Patient is being treated for UTI with IV abx. States that his abd pain and dysuria is improving. Patient also seen by Neuro today. That wanted to have a brain MRI done but the patient refused due to financial reasons. He was started on Meclizine last night which he states has greatly improved his Sx. Seen at bedside. He is resting comfortably and in no acute distress. Denies CP, palpitations and SOB. He denies any dizziness or lightheadedness and reports that the meclizine has helped greatly with this. He is feeling much better after starting abx for his UTI and denies any abd pain or dysuria. No acute complaints at this time. Patient reports he is feeling well and would like to go home. Probable d/c to home if cleared by cardiology. Vitals Vitals Vital Signs Date Time Temp Pulse Resp B/P (MAP) Pulse Ox O2 Delivery O2 Flow Rate FiO2 04/22/17 08:53 84 127/74 04/22/17 07:00 95.9 18 95 Room Air 95.9 Physical Exam General: Alert, Oriented X3, Cooperative, No acute distress Heart: Regular rate, Normal S1, Normal S2, No murmurs Lungs: Clear Abdomen: Normal bowel sounds, Soft, No tenderness, No masses Extremities: No clubbing, No cyanosis, No edema, Normal pulses Skin: No rashes, No breakdown Labs LABS Laboratory Tests Test 04/21/17 16:22 04/21/17 20:50 04/22/17 05:55 04/22/17 07:52 Glucose (Fingerstick) 107 mg/dL (70-99) 121 mg/dL (70-99) 110 mg/dL (70-99) White Blood Count 9.2 x10^3/uL (4.0-11.0) Red Blood Count 4.44 x10^6/uL (4.30-5.70) Hemoglobin 13.0 g/dL (13.0-17.5) Hematocrit 39.0 % (39.0-53.0) Mean Corpuscular Volume 88 fL (79-100) Mean Corpuscular Hemoglobin 29 pg (25-35) Mean Corpuscular Hemoglobin Concent 33 g/dL (31-37) Red Cell Distribution Width 14.0 % (11.5-14.5) Platelet Count 253 x10^3/uL (140-400) Neutrophils (%) (Auto) 54 % (31-73) Lymphocytes (%) (Auto) 31 % (24-48) Monocytes (%) (Auto) 9 % (0-9) Eosinophils (%) (Auto) 5 % (0-3) Basophils (%) (Auto) 1 % (0-3) Neutrophils # (Auto) 5.0 x10^3uL (1.8-7.7) Lymphocytes # (Auto) 2.9 x10^3/uL (1.0-4.8) Monocytes # (Auto) 0.8 x10^3/uL (0.0-1.1) Eosinophils # (Auto) 0.5 x10^3/uL (0.0-0.7) Basophils # (Auto) 0.1 x10^3/uL (0.0-0.2) Test 04/22/17 11:29 Glucose (Fingerstick) 124 mg/dL (70-99) Review of Systems Review of Systems Gen: + fatigue, No fever or chills CV: No CP or palpitations Resp: No SOB or wheezing Neuro: No dizziness or lightheadedness : No dysuria or suprapubic pain Assessment and Plan Assessmemt and Plan Problems Medical Problems: (1) Dizziness Status: Acute Assessment: Lightheadedness/dizziness Palpitations Suprapubic abd pain dysuria CAD DM Plan: -continue monitoring for now -appreciate neuro input -home meds -PT/OT -continue Levoquin for UTI -Probable d/c to home if cleared by cardiology Problems: Comment Review of Relevant I have reviewed the following items jacky (where applicable) has been applied. Labs Laboratory Tests Test 04/20/17 19:37 04/20/17 21:15 04/21/17 03:15 04/21/17 07:45 White Blood Count 10.1 x10^3/uL (4.0-11.0) 9.4 x10^3/uL (4.0-11.0) Red Blood Count 4.50 x10^6/uL (4.30-5.70) 4.33 x10^6/uL (4.30-5.70) Hemoglobin 13.0 g/dL (13.0-17.5) 12.4 g/dL (13.0-17.5) Hematocrit 40.2 % (39.0-53.0) 38.5 % (39.0-53.0) Mean Corpuscular Volume 89 fL (79-100) 89 fL (79-100) Mean Corpuscular Hemoglobin 29 pg (25-35) 29 pg (25-35) Mean Corpuscular Hemoglobin Concent 32 g/dL (31-37) 32 g/dL (31-37) Red Cell Distribution Width 14.0 % (11.5-14.5) 13.9 % (11.5-14.5) Platelet Count 280 x10^3/uL (140-400) 246 x10^3/uL (140-400) Neutrophils (%) (Auto) 52 % (31-73) 50 % (31-73) Lymphocytes (%) (Auto) 34 % (24-48) 34 % (24-48) Monocytes (%) (Auto) 8 % (0-9) 10 % (0-9) Eosinophils (%) (Auto) 4 % (0-3) 5 % (0-3) Basophils (%) (Auto) 1 % (0-3) 1 % (0-3) Neutrophils # (Auto) 5.2 x10^3uL (1.8-7.7) 4.7 x10^3uL (1.8-7.7) Lymphocytes # (Auto) 3.4 x10^3/uL (1.0-4.8) 3.2 x10^3/uL (1.0-4.8) Monocytes # (Auto) 0.8 x10^3/uL (0.0-1.1) 1.0 x10^3/uL (0.0-1.1) Eosinophils # (Auto) 0.4 x10^3/uL (0.0-0.7) 0.5 x10^3/uL (0.0-0.7) Basophils # (Auto) 0.1 x10^3/uL (0.0-0.2) 0.1 x10^3/uL (0.0-0.2) Sodium Level 138 mmol/L (136-145) 139 mmol/L (136-145) Potassium Level 4.5 mmol/L (3.5-5.1) 4.7 mmol/L (3.5-5.1) Chloride Level 101 mmol/L (98-107) 104 mmol/L (98-107) Carbon Dioxide Level 32 mmol/L (21-32) 29 mmol/L (21-32) Anion Gap 5 (6-14) 6 (6-14) Blood Urea Nitrogen 24 mg/dL (8-26) 25 mg/dL (8-26) Creatinine 1.7 mg/dL (0.7-1.3) 1.6 mg/dL (0.7-1.3) Estimated GFR (Cockcroft-Gault) 40.0 42.9 Glucose Level 155 mg/dL (70-99) 88 mg/dL (70-99) Calcium Level 9.2 mg/dL (8.5-10.1) 8.9 mg/dL (8.5-10.1) Magnesium Level 2.2 mg/dL (1.8-2.4) Total Bilirubin 0.3 mg/dL (0.2-1.0) Direct Bilirubin < 0.1 mg/dL (0.0-0.2) Aspartate Amino Transf (AST/SGOT) 17 U/L (15-37) Alanine Aminotransferase (ALT/SGPT) 18 U/L (16-63) Alkaline Phosphatase 73 U/L (46-116) Creatine Kinase 126 U/L (39-308) Creatine Kinase MB (Mass) 0.9 ng/mL (0.0-3.6) Creatine Kinase MB Relative Index 0.7 % (0-4) Troponin I Quantitative < 0.017 ng/mL (0.000-0.055) < 0.017 ng/mL (0.000-0.055) UL-Wpi-X-Type Natriuretic Peptide 184 pg/mL (0-124) Total Protein 8.4 g/dL (6.4-8.2) Albumin 3.6 g/dL (3.4-5.0) Thyroid Stimulating Hormone (TSH) 2.419 uIU/mL (0.358-3.74) Urine Collection Type Unknown Urine Color Yellow Urine Clarity Cloudy Urine pH 6.5 Urine Specific [place] 1.010 Urine Protein Negative mg/dL (NEG-TRACE) Urine Glucose (UA) Negative mg/dL (NEG) Urine Ketones (Stick) Negative mg/dL (NEG) Urine Blood Small (NEG) Urine Nitrite Positive (NEG) Urine Bilirubin Negative (NEG) Urine Urobilinogen Dipstick 0.2 mg/dL (0.2 mg/dL) Urine Leukocyte Esterase Large (NEG) Urine RBC 3-5 /HPF (0-2) Urine WBC >40 /HPF (0-4) Urine Bacteria Many /HPF (0-FEW) Urine Opiates Screen Neg (NEG) Urine Methadone Screen Neg (NEG) Urine Barbiturates Neg (NEG) Urine Phencyclidine Screen Neg (NEG) Urine Amphetamine/Methamphetamine Neg (NEG) Urine Benzodiazepines Screen Neg (NEG) Urine Cocaine Screen Neg (NEG) Urine Cannabinoids Screen Neg (NEG) Urine Ethyl Alcohol Neg (NEG) Glucose (Fingerstick) 112 mg/dL (70-99) Test 04/21/17 09:00 04/21/17 10:55 04/21/17 16:22 04/21/17 20:50 Troponin I Quantitative < 0.017 ng/mL (0.000-0.055) Glucose (Fingerstick) 119 mg/dL (70-99) 107 mg/dL (70-99) 121 mg/dL (70-99) Test 04/22/17 05:55 04/22/17 07:52 04/22/17 11:29 White Blood Count 9.2 x10^3/uL (4.0-11.0) Red Blood Count 4.44 x10^6/uL (4.30-5.70) Hemoglobin 13.0 g/dL (13.0-17.5) Hematocrit 39.0 % (39.0-53.0) Mean Corpuscular Volume 88 fL (79-100) Mean Corpuscular Hemoglobin 29 pg (25-35) Mean Corpuscular Hemoglobin Concent 33 g/dL (31-37) Red Cell Distribution Width 14.0 % (11.5-14.5) Platelet Count 253 x10^3/uL (140-400) Neutrophils (%) (Auto) 54 % (31-73) Lymphocytes (%) (Auto) 31 % (24-48) Monocytes (%) (Auto) 9 % (0-9) Eosinophils (%) (Auto) 5 % (0-3) Basophils (%) (Auto) 1 % (0-3) Neutrophils # (Auto) 5.0 x10^3uL (1.8-7.7) Lymphocytes # (Auto) 2.9 x10^3/uL (1.0-4.8) Monocytes # (Auto) 0.8 x10^3/uL (0.0-1.1) Eosinophils # (Auto) 0.5 x10^3/uL (0.0-0.7) Basophils # (Auto) 0.1 x10^3/uL (0.0-0.2) Glucose (Fingerstick) 110 mg/dL (70-99) 124 mg/dL (70-99) Laboratory Tests Test 04/21/17 16:22 04/21/17 20:50 04/22/17 05:55 04/22/17 07:52 Glucose (Fingerstick) 107 mg/dL (70-99) 121 mg/dL (70-99) 110 mg/dL (70-99) White Blood Count 9.2 x10^3/uL (4.0-11.0) Red Blood Count 4.44 x10^6/uL (4.30-5.70) Hemoglobin 13.0 g/dL (13.0-17.5) Hematocrit 39.0 % (39.0-53.0) Mean Corpuscular Volume 88 fL (79-100) Mean Corpuscular Hemoglobin 29 pg (25-35) Mean Corpuscular Hemoglobin Concent 33 g/dL (31-37) Red Cell Distribution Width 14.0 % (11.5-14.5) Platelet Count 253 x10^3/uL (140-400) Neutrophils (%) (Auto) 54 % (31-73) Lymphocytes (%) (Auto) 31 % (24-48) Monocytes (%) (Auto) 9 % (0-9) Eosinophils (%) (Auto) 5 % (0-3) Basophils (%) (Auto) 1 % (0-3) Neutrophils # (Auto) 5.0 x10^3uL (1.8-7.7) Lymphocytes # (Auto) 2.9 x10^3/uL (1.0-4.8) Monocytes # (Auto) 0.8 x10^3/uL (0.0-1.1) Eosinophils # (Auto) 0.5 x10^3/uL (0.0-0.7) Basophils # (Auto) 0.1 x10^3/uL (0.0-0.2) Test 04/22/17 11:29 Glucose (Fingerstick) 124 mg/dL (70-99) Microbiology 04/20/17 Urine Culture - Preliminary, Resulted 04/20/17 Urine Culture Result 1 (CHERYL) - Preliminary, Resulted Medications Current Medications Ondansetron HCl (Zofran) 4 mg PRN Q8HRS PRN IV NAUSEA/VOMITING; Start 04/20/17 at 21:15; Stop 04/21/17 at 21:14; Status DC Lisinopril (Prinivil) 20 mg DAILY PO ; Start 04/21/17 at 09:00; Stop 04/21/17 at 19:38; Status DC Metformin HCl (Glucophage) 500 mg BIDWMEALS PO ; Start 04/21/17 at 08:00; Status UNV Metoprolol Succinate (Toprol Xl) 50 mg DAILY PO Last administered on 04/22/17 08:53; Start 04/21/17 at 09:00 Clonidine HCl (Catapres) 0.1 mg PRN Q1HR PRN PO HYPERTENSION, SEE COMMENTS; Start 04/21/17 at 01:00 Hydrochlorothiazide (Microzide) 12.5 mg DAILY PO ; Start 04/21/17 at 09:00 Sodium Chloride 1,000 ml @ 50 mls/hr Q20H IV Last administered on 04/22/17 08 :57; Start 04/21/17 at 13:00 Levofloxacin/ Dextrose 100 ml @ 100 mls/hr Q24H IV Last administered on 11:29; Start 04/21/17 at 13:00 Meclizine HCl (Antivert) 25 mg PRN Q8HRS PRN PO DIZZINESS Last administered on 04/22/17 08:58; Start 04/21/17 at 16:30 Lisinopril (Prinivil) 20 mg QHS PO Last administered on 04/21/17 20:02; Start 04/21/17 at 21:00 Levofloxacin (Levaquin) 500 mg 1X ONCE PO ; Start 04/22/17 at 12:45; Stop 04/22 at 12:46; Status UNV Active Scripts Active Reported Metformin Hcl 500 Mg Tablet 500 Mg PO BIDWMEALS Lisinopril 20 Mg Tablet 20 Mg PO DAILY Metoprolol ER-Hctz 50-12.5 mg (Metoprolol Succinate/Hctz) 1 Each Tab.er.24h 1 Each PO DAILY Vitals/I & O Vital Sign - Last 24 Hours 04/21/17 04/21/17 04/21/17 04/21/17 19:00 20:00 20:02 23:00 Temp 97.7 98.3 97.7 98.3 Pulse 69 69 61 Resp 20 20 B/P (MAP) 121/65 (83) 121/65 126/75 (92) Pulse Ox 95 96 O2 Delivery Room Air Room Air Room Air 04/22/17 04/22/17 04/22/17 03:13 07:00 08:53 Temp 97.6 95.9 97.6 95.9 Pulse 61 84 84 Resp 20 18 B/P (MAP) 140/67 (91) 127/74 (91) 127/74 Pulse Ox 93 95 O2 Delivery Room Air Room Air Intake and Output 04/22/17 04/22/17 04/23/17 15:00 23:00 07:00 Intake Total 120 ml Balance 120 ml CASTLE,NIAL K III DO Apr 22, 2017 13:14
[2017-04-22] MEDS ORDERED: MECL12.52 PO (13:35)
--- NOTE | 2017-04-22 20:47 | CONS ---
DATE OF CONSULTATION: 04/22/2017 REASON FOR CONSULTATION: Right and left lower quadrant abdominal pain with dysuria. HISTORY OF PRESENT ILLNESS: A 72-year-old male with a past medical history significant for organic heart disease, status post bypass surgery, status post cardiac stents, diabetes, and hypertension, is admitted to [facility] with dizziness, palpitations, and lightheadedness. The patient was also noted to have dysuria without hematuria. Previous endoscopies have revealed ulcers in the past when he had a bleed. There has been no change in bowel habits with bowel movements every 2-3 days. With the dysuria, antibiotics were started and his lower abdominal pain has since resolved. He is otherwise without additional complaints. PAST MEDICAL HISTORY: Heart disease, status post bypass surgery, status post cardiac stents, and hypertension. ALLERGIES: OXYCODONE. MEDICATIONS: Presently include lisinopril, Antivert, levofloxacin, Microzide, Toprol, and Catapres. SOCIAL HISTORY: He is retired. Does not drink or smoke at this time. FAMILY HISTORY: Noncontributory. REVIEW OF SYSTEMS: Per records. PHYSICAL EXAMINATION: GENERAL: Reveals a well-nourished, well-developed male. VITAL SIGNS: Temperature is 95.9, pulse 84, respirations 18, blood pressure 127/74. HEENT: Normocephalic and atraumatic head. Pupils and extraocular movements not tested. Sclerae anicteric. NECK: Supple. LUNGS: Clear. CARDIOVASCULAR: Reveals an S1, S2 without S3, S4 or appreciable murmur. A well-healed midline sternal incision. ABDOMEN: Reveals a soft abdomen, normal bowel sounds, without appreciable hepatosplenomegaly. EXTREMITIES: Reveals no cyanosis, clubbing or edema. LABORATORY STUDIES: Calcium 8.9, glucose 88, BUN 25, creatinine 1.6, sodium ____, potassium 4.7. Hemoglobin 13, hematocrit 39, white count 9.2, platelet count 253,000. IMPRESSION: Lower abdominal pain, most likely secondary to cystitis with urinalysis revealing positive nitrite, small amount of blood, large amount of leukocyte esterase, over 40 and many bacteria. IMPRESSION: Right lower quadrant abdominal pain, most likely secondary to a urinary tract infection. We will recommend antibiotic therapy pending culture and sensitivity. He is stable for release from a gastrointestinal standpoint. JESSICA MARQUEZ MD DR: ANALIA/marcia JOB#: [id number] / [id number] JESSICA Jo MD, Cherrie M.D.
--- NOTE | 2017-05-10 12:34 | DS ---
DATE OF DISCHARGE: 04/22/2017 ADMISSION DIAGNOSIS: Palpitations. DISCHARGE DIAGNOSIS: Resolving palpitations. HOSPITAL COURSE: The patient is a pleasant 72-year-old male, presented with palpitations. He was admitted. We did cardiac monitoring, consulted Cardiology. He refused further workup. His symptoms did resolve. We discharged him home with close outpatient followup. DISPOSITION: Home. ACTIVITY: As tolerated. DIET: Low sodium. MEDICATIONS: Please see MRAD. TOTAL TIME: 31 minutes. ALEXIS ROMO DO DR: ESME/marcia JOB#: [id number] / [id number]
== END 2017-04-22 14:15 | disposition home or self-care (01) | DRG 690 ==
LOC: ER 19:25 → 5 NORTH 20:50
PROVIDERS: ADMIT Internal Medicine; ATTEND Internal Medicine
DX: N30.91 Cystitis, unspecified with hematuria (principal); E11.9 Type 2 diabetes mellitus without complications; I10 Essential (primary) hypertension; H81.8X9 Other disorders of vestibular function, unspecified ear; I25.10 Atherosclerotic heart disease of native coronary artery without angina pectoris; I49.1 Atrial premature depolarization; Z88.5 Allergy status to narcotic agent; Z95.1 Presence of aortocoronary bypass graft; Z95.5 Presence of coronary angioplasty implant and graft; Z82.49 Family history of ischemic heart disease and other diseases of the circulatory system
CPT/HCPCS: 36415; 70450; 71010; 80048; 80076; 80307; 81001; 82553; 82962; 83735; 83880; 84443; 84484; 85025; 87086; 87186; 93005; 93880; J1956; J7030; J8597; 99285-25; G0479

== ENCOUNTER 2017-08-03 13:57 | Emergency (ER) | payer OTHER ==
[2017-08-03] MEDS: diazePAM 5 MG TABLET PO (16:31)
[2017-08-03] MEDS: HYDROcodone/APAP 5/325MG 1 TAB TABLET PO (16:31)
[2017-08-03] MEDS: KETOROLAC 60 MG/2 ML INJ. IM (16:32)
[2017-08-03] MEDS: DEXAMETHASONE SOD PHOS 20 MG/5 ML VIAL. IM (16:35)
== END 2017-08-03 17:34 | disposition home or self-care (01) ==
LOC: ER 13:57
DX: M16.0 Bilateral primary osteoarthritis of hip (principal); M47.816 Spondylosis without myelopathy or radiculopathy, lumbar region; I25.10 Atherosclerotic heart disease of native coronary artery without angina pectoris; E11.9 Type 2 diabetes mellitus without complications; I25.2 Old myocardial infarction; I10 Essential (primary) hypertension; Z90.49 Acquired absence of other specified parts of digestive tract; Z95.5 Presence of coronary angioplasty implant and graft; Z88.5 Allergy status to narcotic agent
CPT/HCPCS: 72100; 73521; 96372; 99284-25; J1100; J1885

== ENCOUNTER → 2017-08-23 | Outpatient (CLI) | payer OTHER | END | disposition home or self-care (01) | LOC: KCIC MRI 14:09 | DX: M47.896 Other spondylosis, lumbar region (principal); M48.061 Spinal stenosis, lumbar region without neurogenic claudication; M41.86 Other forms of scoliosis, lumbar region | CPT/HCPCS: 72148 ==

== ENCOUNTER → 2018-01-15 | Outpatient (CLI) | payer OTHER | END | disposition home or self-care (01) | LOC: US 16:12 | DX: R60.0 Localized edema (principal) | CPT/HCPCS: 93971 ==

== ENCOUNTER → 2021-01-18 | Outpatient (CLI) | payer MEDICARE ==
[2017-08-03 14:55] VITALS: BP 212/98
[~2021-01-18] MED LIST: CYCL10TA2 PO; HYDR-3164 PO; LISI20TA18 PO; MECL12.582 PO; METF500T16 PO; METH4TAB2 PO; METO1TAB32 PO; NAPR-695 PO
[2021-01-18 11:59] LABS: CHOLESTEROL/HDL RATIO 4.6
--- NOTE | 2021-01-18 18:29 | RAD ---
MR#: [id number] Date of Study: 01/18/2021 Ordering Physician: ARIANNA GANT, Referring Physician: ARIANNA GANT, Tech: Tony Barton MBA, RDMS, RVT, RDCS, RTR APPROVED REPORT Patient Location: OUT-PATIENT Indications PAD Findings Right arm 139, left arm 144 Right ankle 147, left 145 Bilateral ankle-brachial indices are 1.0 Critical Notification Critical Value: No <Conclusion> 1. Normal bilateral LESLEY. Signed by : Arianna Gant, Electronically Approved : 01/18/2021 18:28:43
--- NOTE | 2021-01-18 18:30 | RAD ---
MR#: [id number] Date of Study: 01/18/2021 Ordering Physician: ARIANNA GANT, Referring Physician: ARIANNA GANT, Tech: Tony Barton MBA, RDMS, RVT, RDCS, RTR APPROVED REPORT Patient Location: OUT-PATIENT Indications PAD VELOCITY AND DOPPLER WAVEFORM ANALYSIS RIGHT cm/secWaveformSeverity LEFT cm/secWaveform Severity dCFA 215.0BiphasicdCFA 97.0Biphasic Prof Fem Art. 80.0BiphasicProf Fem Art. 55.0Biphasic Fem Art Prox. 368.0BiphasicFem Art Prox. 139.0Biphasic Fem Art Mid. 180.0BiphasicFem Art Mid. 170.0Biphasic Fem Art Dist. 54.0BiphasicFem Art Dist. 71.0Biphasic Pop Art(Fossa) 94.0BiphasicPop Art(AK) 67.0Biphasic [place]PRING WINDER Prox. 72.0BiphasicPTA Prox. 80.0Biphasic MAINSPRING WINDER Dist. 51.0BiphasicPTA Dist. 68.0Biphasic Per Art Mid. 69.0BiphasicPer Art Mid. 101.0Biphasic TRACY Prox. 55.0BiphasicATA Prox. 65.0Biphasic DPA 44BiphasicDPA 53Biphasic Findings Grayscale images of the bilateral lower extremity arterial vessels demonstrates moderate diffuse athe rosclerosis. On the right side there is likely a greater than 50% stenosis involving the mid right SFA. Otherwise there is three-vessel runoff bilaterally. No focal stenosis identified on the left side. Critical Notification Critical Value: No <Conclusion> 1. Probable greater than 50% stenosis involving the right SFA 2. Three-vessel runoff bilaterally without any focal significant stenosis noted on the left side. Signed by : Arianna Gant, Electronically Approved : 01/18/2021 18:30:09
--- NOTE | 2021-01-20 12:49 | CARD ---
MR#: [id number] Date of Study: 01/18/2021 Ordering Physician: ARIANNA GANT, Referring Physician: ARIANNA GANT, Tech: Willis Lucio [facility] APPROVED REPORT EXAM: Two-dimensional and M-mode echocardiogram with Doppler and color Doppler. Other Information Quality : AverageHR: 64bpm Rhythm : NSR INDICATION CAD RISK FACTORS Hypertension 2D DIMENSIONS Left Atrium(2D)4.2 (1.6-4.0cm)IVSd0.9 (0.7-1.1cm) Aortic Root(2D)3.8 (2.0-3.7cm)LVDd5.2 (3.9-5.9cm) LVOT Diameter2.2 (1.8-2.4cm)PWd0.9 (0.7-1.1cm) LVDs3.2 (2.5-4.0cm)FS (%) 39.5 % SV90.6 mlLVEF(%)69.7 (>50%) Aortic Valve AoV Peak Ion.95.6cm/sAoV VTI26.1cm AO Peak GR.3.7mmHgLVOT Peak Ion.79.3cm/s AO Mean GR.2mmHgAVA (VMAX)3.20cm2 Mitral Valve MV E Tfvlxktc697.2cm/sMV E Peak Gr.7mmHg MV DECEL [id number] A Rhnshzfc085.0cm/s MV E Mean Gr.3mmHgE/A Ratio0.9 Pulmonary Valve PV Peak Pilfmbxb04.3cm/s Tricuspid Valve TR P. [id number]/sTR Peak Gr.32mmHg LEFT VENTRICLE The left ventricle is normal size. There is normal left ventricular wall thickness. The left ventricu lar systolic function is normal. Tje ejection fraction is 55%. There is normal LV segmental wall regina on. Transmitral Doppler flow pattern is Grade I-abnormal relaxation pattern. No left ventricle thromb us noted on this study. There is no ventricular septal defect visualized. There is no left ventricula r aneurysm. There is no mass noted in the left ventricle. RIGHT VENTRICLE The right ventricle is normal size. There is normal right ventricular wall thickness. The right ventr icular systolic function is normal. ATRIA The left atrium size is normal. The right atrium size is normal. The interatrial septum is intact wit h no evidence for an atrial septal defect or patent foramen ovale as noted on 2-D or Doppler imaging. AORTIC VALVE The aortic valve is normal in structure and function. Doppler and Color Flow revealed no significant aortic regurgitation. There is no significant aortic valvular stenosis. There is no aortic valvular v egetation. MITRAL VALVE The mitral valve is normal in structure and function. There is no evidence of mitral valve prolapse. There is no mitral valve stenosis. Doppler and Color Flow revealed trace mitral valve regurgitation. TRICUSPID VALVE The tricuspid valve is normal in structure and function. Doppler and Color Flow revealed no tricuspid valve regurgitation noted. There is no tricuspid valve stenosis. PULMONIC VALVE The pulmonary valve is normal in structure and function. Doppler and Color Flow revealed no pulmonic valvular regurgitation. There is no pulmonic valvular stenosis. GREAT VESSELS The aortic root is normal in size. The ascending aorta is normal in size. The pulmonary artery is nor mal. The IVC is normal in size and collapses >50% with inspiration. PERICARDIAL EFFUSION There is no pleural effusion. There is no evidence of significant pericardial effusion. Critical Notification Critical Value: No <Conclusion> The left ventricular systolic function is normal. Tje ejection fraction is 55%. There is normal LV segmental wall motion. Transmitral Doppler flow pattern is Grade I-abnormal relaxation pattern. Trace mitral regurgitation. There is no evidence of significant pericardial effusion. Signed by : Ashu Kwon, Electronically Approved : 01/20/2021 12:49:01
== END ==
LOC: US 09:41
PROVIDERS: ATTEND Internal Medicine Cardiovascular Disease
DX: I25.10 Atherosclerotic heart disease of native coronary artery without angina pectoris (principal); I73.9 Peripheral vascular disease, unspecified
CPT/HCPCS: 36415; 80061; 83721; 93306; 93922; 93925